=== PATIENT | male | born 1995 | race Hispanic/Latino ===

== ENCOUNTER 2019-04-12 06:18 | Day surgery (SDC) | payer OTHER ==
[~2019-04-12] VITALS: Ht 172.7 cm; Wt 96.2 kg
--- NOTE | ~2019-04-12 | OR ---
[facility] [address] [place], [place] [address] Draft DATE OF OPERATION: 04/12/2019 SURGEON: Valeri Parisi MD PREOPERATIVE DIAGNOSIS: Chronic calculous cholecystitis. POSTOPERATIVE DIAGNOSIS: Chronic calculous cholecystitis. PROCEDURES: 1. Laparoscopic cholecystectomy with intraoperative cholangiogram. 2. Surgeon-directed fluoroscopy. ANESTHESIA: General endotracheal; Bee Gomes CRNA, and local 20 mL of 0.25% Marcaine with epinephrine. INDICATION: This 24-year-old man is a prisoner at [facility] and referred by LUPIS Rudolph for consideration of recurrent biliary complaints including right upper abdominal pain. He underwent gallbladder ultrasound, which showed gallstones as well as gallbladder wall thickening. He had a somewhat enlarged liver. Alkaline phosphatase was 117. White count was normal. He was admitted at this time to undergo cholecystectomy for symptomatic gallstones, chronic cholecystitis. He understands the risks of bleeding, infection, bile duct injury, need for open procedure, and of course failure to cure his symptoms. He understands his risks, he wished to proceed. FINDINGS: Gallbladder was chronically inflamed. The liver was reasonably normal appearing. The gallbladder once excised showed a large multifaceted yellow gallstone. There was cholesterolosis of the mucosa. Intraoperative cholangiogram was normal. There were no other findings of concern. DESCRIPTION OF PROCEDURE: The patient was brought to the operating room, given a general endotracheal anesthetic. Preoperative antibiotic Ancef was given. Sequential compression device stockings were used and heparin subcutaneously administered. The abdomen was prepped, clipped, and prepared with a chlorhexidine solution and draped sterilely. An infraumbilical incision was made and using an open Letitia cannula technique, pneumoperitoneum was achieved to a PATIENT NAME: YOGESH BROWN OPERATIVE REPORT DATE OF : [birth year] REPORT #: [id number] PHYSICIAN: VALERI PARISI MD PCP: YAMILKA FLEMING REPORT IS CONFIDENTIAL AND NOT TO BE RELEASED WITHOUT AUTHORIZATION [facility] [address] [place], [place] [address] Draft level of 14 mmHg of carbon dioxide gas. Intraabdominal inspection showed no sign of ascites or carcinomatosis. The gallbladder was obscured from view initially. Three additional trocars were placed in usual configuration in the subxiphoid, right midclavicular, and right anterior axillary line. The gallbladder was elevated cephalad and retracted laterally. Using blunt electrocautery dissection, the triangle of Calot was dissected free. The cystic duct once well identified, was clipped in the junction of the gallbladder and cystic duct, and transverse choledochotomy made in the cystic duct. Egress of clear bile was noted. Using the Lerma type cholangiocatheter, intraoperative cholangiography was undertaken showing free flow of contrast into the biliary tree with prompt emptying into the duodenum. There was no sign of filling defect or other abnormality. Catheter was removed. The cystic duct was triply clipped and divided, and gallbladder dissected free in a retrograde fashion using electrocautery. Emptied gallbladder allowed for spillage of clear yellow bile. There was no spillage of stones. The gallbladder was placed in an endobag and extracted through the infraumbilical port site, opened on the back table, and found to have chronic inflammatory change of the mucosa, cholesterolosis, and multifaceted gallstone. Irrigation was undertaken in subhepatic space. Electrocautery was used to assure hemostasis. Excess irrigation fluid was suctioned free. The trocars were removed under direct visualization showing no sign of bleeding. The infraumbilical fascial incision was reapproximated with interrupted #0 Vicryl suture and running #0 PDS suture as well. A 20 mL of 0.25% Marcaine with epinephrine was injected locally. All wounds were copiously irrigated and skin closed with interrupted 3-0 Vicryl. Steri-Strips were applied. The patient was ultimately extubated, transferred to recovery room in good condition having suffered no complications. Sponge, needle, and instrument counts were reported as correct x3. MD FE Romero/ALTAL /[id number] cc: LUPIS Stark EOCI PATIENT NAME: YOGESH BROWN OPERATIVE REPORT DATE OF : [birth year] REPORT #: [id number] PHYSICIAN: VALERI PARISI MD PCP: YAMILKA FLEMING REPORT IS CONFIDENTIAL AND NOT TO BE RELEASED WITHOUT AUTHORIZATION [facility] [address] [place] [id number] Draft Copies: YAMILKA FLEMING ~ PATIENT NAME: KEVINYOGESH FOSTERELVIS OPERATIVE REPORT DATE OF : [birth year] REPORT #: [id number] PHYSICIAN: VALERI PARISI MD PCP: YAMILKA FLEMING REPORT IS CONFIDENTIAL AND NOT TO BE RELEASED WITHOUT AUTHORIZATION
--- NOTE | 2019-04-12 09:46 | NUR ---
04/12/19 0946 Mitzi Hampton 0942- PT TO PACU SUPINE POSITION. EYES CLOSED WITH ORAL AIRWAY IN PLACE. DOES NOT RESPOND TO VOICE OR VERBAL STIMULI. BREATHING EASY AND UNLABORED WITH ORAL AIRWAY IN PLACE. SP02>95% ON 6 L O2 VIA MASK. DRESSING CDI. LABORER ELECTROPLATING AT BEDSIDE. REPORT RECEIVED. INSTRUCTED TO PROVIDE NUBAIN, 10 MG IV FIRST FOR PAIN.
[2019-04-12] MEDS ORDERED: IBUPROFEN600 MG PO (09:57)
[2019-04-12] MEDS ORDERED: HYDROCODON-ACE1 EA10 PO (09:57)
[2019-04-12] MEDS ORDERED: TYLENOL EXTRA500 MG PO (09:58)
--- NOTE | 2019-04-12 10:37 | NUR ---
1020 PT BACK TO ROOM FROM PACU AWAKE AND ALERT REPORTS PAIN AT 6/10 STATES ITS TOLERABLE. PT TAKING SIPS OF WATER TOLERATES WELL.
--- NOTE | 2019-04-12 12:24 | NUR ---
1215 PT UP TO BATHROOM WITH MINIMAL ASSIST WAS ABLE TO VOID 200ML OF DARK YELLOW CLEAR URINE.
--- NOTE | 2019-04-12 12:25 | NUR ---
1220 PT REPORTS READINESS TO GO HOME DISCHARGE INSTRUCTIONS GIVEN TO PT HE VOICED UNDERSTANDING. PT REPORTS PAIN IS THE SAME AT 5/10 AND HE IS "FINE".
--- NOTE | 2019-04-12 12:33 | NUR ---
1225 REENFORCED STERI STRIPS WITH 2X2 AND TAPE, THEY HAD SCANT AMOUNT OF BLEEDING AND THEY WERE STARTING TO PEEL OFF FROM PT MOVING IN BED.
--- NOTE | 2019-04-13 12:57 | PATH ---
[facility] [address] [place], [place] [address] Signed SPECIMEN(S): A GALLBLADDER AND STONES SPECIMEN SOURCE: A. GALLBLADDER AND STONES CLINICAL HISTORY: Chronic cholecystitis. FINAL PATHOLOGIC DIAGNOSIS: Gallbladder, cholecystectomy: - Mild chronic cholecystitis. - Cholelithiasis. - Cholesterolosis. GEEA:laz:C2ROMY MICROSCOPIC EXAMINATION: Histologic sections of all submitted blocks are examined by light microscopy. These findings, together with the gross examination, support the pathologic diagnosis. GROSS DESCRIPTION: The specimen, labeled "JU, gallbladder," is received in formalin and consists of Specimen: Previously opened gallbladder. Dimensions: 6 cm in length and 3.3 cm in inner circumference. Serosa: Violaceous and smooth. Cystic Duct: unobstructed. Calculi: One yellow-green, irregular shaped gallstone within the gallbladder that measures 1.4 cm in greatest dimension. Mucosa: [place]-red and velvety with yellow flecking. Wall thickness: 0.4 cm. Lymph node: No pericystic lymph nodes are grossly identified. Additional: None. Industrial Relations Director sections are submitted in cassette (A1). JS (under the direct supervision of a pathologist) The Gross Description was prepared using a voice recognition system. The report was reviewed for accuracy; however, sound-alike word errors, addition and/or deletions may occur. If there is any question about this report, please contact Client Services. PERFORMING LABORATORY: PATIENT NAME: YOGESH BROWN PATHOLOGY DATE OF : [birth year] REPORT #: [id number] PHYSICIAN: GELACIO BLACK PCP: YAMILKA FLEMING REPORT IS CONFIDENTIAL AND NOT TO BE RELEASED WITHOUT AUTHORIZATION [facility] [address] [phone] Signed The technical component was performed by [employer] [address] (Director Writing: Ashli Maya MD; CLIA# [id number]). Professional [facility], [address] [address] (Director Writing: Pedro Soliman MD; CLIA# [id number]). Diagnostician: Pedro Soliman MD Pathologist Electronically Signed 04/13/2019 Copies: ~ PATIENT NAME: YOGESH BROWN PATHOLOGY DATE OF : [birth year] REPORT #: [id number] PHYSICIAN: GELACIO BLACK PCP: YAMILKA FLEMING REPORT IS CONFIDENTIAL AND NOT TO BE RELEASED WITHOUT AUTHORIZATION
== END 2019-04-12 12:30 | disposition home or self-care (01) ==
LOC: OPS 06:18 → DS 06:18 → OPS 06:45 → DS 06:45 → OPS 12:30
PROVIDERS: Surgery
PROC: BF13YZZ Fluoroscopy of Gallbladder and Bile Ducts using Other Contrast (ICD-10-PCS; 2019-04-12)
PROC: 0FT44ZZ Resection of Gallbladder, Percutaneous Endoscopic Approach (ICD-10-PCS; principal; 2019-04-12 06:45)
DX: K80.10 Calculus of gallbladder with chronic cholecystitis without obstruction (principal); E66.9 Obesity, unspecified; Z68.45 Body mass index [BMI] 70 or greater, adult
CPT/HCPCS: 74300; J0330; J0690; J1100; J1644; J1885; J2250; J2405; J2704; J3475; J7121; Q9967